=== PATIENT | male | born 1950 | race Two or more races ===

== ENCOUNTER 2018-05-20 13:52 | Outpatient (CLI) | payer OTHER ==
[~2018-05-20 13:52] MED LIST: ARICEPT5 MG; VYTORIN 10-20 M1 TAB; ZESTORETIC 10/11 TAB
== END 2018-05-20 14:02 | disposition home or self-care (01) ==
LOC: LAB 13:52
DX: R97.20 Elevated prostate specific antigen [PSA] (principal)

== ENCOUNTER 2018-06-06 07:08 | Outpatient (CLI) | payer OTHER | END 2018-06-06 07:23 | disposition home or self-care (01) | LOC: SONOGRAMA 07:08 | DX: R97.20 Elevated prostate specific antigen [PSA] (principal) ==

== ENCOUNTER → 2018-06-06 | Emergency (ER) | payer OTHER | END | disposition left against medical advice (07) | LOC: ER 22:57 | DX: Z53.20 Procedure and treatment not carried out because of patient's decision for unspecified reasons (principal) ==

== ENCOUNTER 2018-06-18 10:17 | Outpatient (CLI) | payer OTHER | END 2018-06-18 10:32 | disposition home or self-care (01) | LOC: TOM 10:17 | DX: N40.0 Benign prostatic hyperplasia without lower urinary tract symptoms (principal); R97.20 Elevated prostate specific antigen [PSA]; F52.21 Male erectile disorder; C61 Malignant neoplasm of prostate ==

== ENCOUNTER → 2018-07-14 | Outpatient (CLI) | payer OTHER | END | disposition home or self-care (01) | LOC: NUCLEAR 07:27 | DX: N40.0 Benign prostatic hyperplasia without lower urinary tract symptoms (principal); R97.20 Elevated prostate specific antigen [PSA]; F52.21 Male erectile disorder; C61 Malignant neoplasm of prostate | CPT/HCPCS: 78306; 78320; A9503 ==

== ENCOUNTER 2018-08-25 12:13 | Inpatient (IN) | payer OTHER ==
[~2018-08-25] VITALS: Ht 170.2 cm; Wt 86.2 kg
[2018-10-06] MEDS ORDERED: FUROSEMIDE20 MG PO (13:31)
[2018-10-06] MEDS ORDERED: [UNRECOGNIZED DRUG - CODE] PO (13:32)
[2018-10-06] MEDS ORDERED: CARV PO (13:32)
[2018-10-08] MEDS ORDERED: CARVEDILOL3.125 MG PO (07:58)
[2018-10-08] MEDS ORDERED: SPIRONOLACTONE25 MG PO (08:01)
[2018-10-08] MEDS ORDERED: EZETIMIBE-SIMV1 EAC3 PO (08:12)
== END 2018-10-10 11:51 | disposition home or self-care (01) | DRG 708 ==
LOC: EDSTATUS 10-06 10:00 → ADM 10-06 10:00 → O/R 10-06 10:00 → SURH 10-08 05:35 → O/R 10-08 05:35 → SURH 10-08 07:00 → SURG 10-08 13:28 → SURH 10-08 14:07
PROVIDERS: ADMIT Urology
PROC: 07TC0ZZ Resection of Pelvis Lymphatic, Open Approach (ICD-10-PCS; 2018-10-08)
PROC: 0VT30ZZ Resection of Bilateral Seminal Vesicles, Open Approach (ICD-10-PCS; 2018-10-08)
PROC: 0VT00ZZ Resection of Prostate, Open Approach (ICD-10-PCS; principal; 2018-10-08 07:00)
DX: C61 Malignant neoplasm of prostate (principal); F52.21 Male erectile disorder

== ENCOUNTER → 2018-12-22 10:01 | Outpatient (CLI) | payer OTHER ==
[~2018-12-22 10:01] MED LIST changes: +CARV PO; +CARVEDILOL3.125 MG PO; +EZETIMIBE-SIMV1 EAC3 PO; +FUROSEMIDE20 MG PO; +SPIRONOLACTONE25 MG PO; +[UNRECOGNIZED DRUG - CODE] PO
== END | disposition home or self-care (01) ==
LOC: LAB 10:01
DX: C61 Malignant neoplasm of prostate (principal); I10 Essential (primary) hypertension; D50.8 Other iron deficiency anemias; D51.8 Other vitamin B12 deficiency anemias; E11.9 Type 2 diabetes mellitus without complications; D55.0 Anemia due to glucose-6-phosphate dehydrogenase [G6PD] deficiency; D51.1 Vitamin B12 deficiency anemia due to selective vitamin B12 malabsorption with proteinuria; D51.0 Vitamin B12 deficiency anemia due to intrinsic factor deficiency; E03.8 Other specified hypothyroidism; E06.3 Autoimmune thyroiditis; D59.1 Other autoimmune hemolytic anemias; D59.8 Other acquired hemolytic anemias; Z80.42 Family history of malignant neoplasm of prostate

== ENCOUNTER → 2019-04-02 09:36 | Outpatient (CLI) | payer OTHER | END | disposition home or self-care (01) | LOC: LAB 09:36 | DX: C61 Malignant neoplasm of prostate (principal) ==

== ENCOUNTER 2019-10-27 10:33 | Outpatient (CLI) | payer OTHER | END 2019-10-27 10:41 | disposition home or self-care (01) | LOC: LAB 10:33 | PROVIDERS: ATTEND Internal Medicine Hematology & Oncology | DX: D50.8 Other iron deficiency anemias (principal); I10 Essential (primary) hypertension; N18.2 Chronic kidney disease, stage 2 (mild); D63.1 Anemia in chronic kidney disease; C61 Malignant neoplasm of prostate; E78.2 Mixed hyperlipidemia; R73.01 Impaired fasting glucose; R97.8 Other abnormal tumor markers ==

== ENCOUNTER → 2019-11-27 10:20 | Outpatient (CLI) | payer OTHER | END | disposition home or self-care (01) | LOC: LAB 10:20 | PROVIDERS: ATTEND Internal Medicine Hematology & Oncology | DX: N39.0 Urinary tract infection, site not specified (principal); R80.8 Other proteinuria; R94.4 Abnormal results of kidney function studies; Z80.42 Family history of malignant neoplasm of prostate; C61 Malignant neoplasm of prostate; E78.2 Mixed hyperlipidemia; R73.01 Impaired fasting glucose; D63.1 Anemia in chronic kidney disease; N18.2 Chronic kidney disease, stage 2 (mild) ==

== ENCOUNTER → 2020-03-01 08:03 | Outpatient (CLI) | payer OTHER | END | disposition home or self-care (01) | LOC: LAB 08:03 | PROVIDERS: ATTEND Internal Medicine Hematology & Oncology | DX: D50.8 Other iron deficiency anemias (principal); I10 Essential (primary) hypertension; D51.8 Other vitamin B12 deficiency anemias; D63.1 Anemia in chronic kidney disease; Z80.42 Family history of malignant neoplasm of prostate; C61 Malignant neoplasm of prostate; E78.2 Mixed hyperlipidemia; R73.01 Impaired fasting glucose; R80.8 Other proteinuria ==

== ENCOUNTER 2020-03-01 09:08 | Outpatient (CLI) | payer OTHER | END 2020-03-01 09:39 | disposition home or self-care (01) | LOC: SONOGRAMA 09:08 → MAMO-SONO 09:15 → SONOGRAMA 09:39 | DX: Q61.02 Congenital multiple renal cysts (principal) ==

== ENCOUNTER 2020-05-10 08:44 | Outpatient (CLI) | payer OTHER | END 2020-05-10 08:57 | disposition home or self-care (01) | LOC: LAB 08:44 | PROVIDERS: ATTEND Internal Medicine Hematology & Oncology | DX: N39.0 Urinary tract infection, site not specified (principal); R80.8 Other proteinuria; R94.4 Abnormal results of kidney function studies; Z80.42 Family history of malignant neoplasm of prostate; C61 Malignant neoplasm of prostate; I10 Essential (primary) hypertension; E78.2 Mixed hyperlipidemia; R73.01 Impaired fasting glucose; D63.1 Anemia in chronic kidney disease ==

== ENCOUNTER 2020-08-19 15:24 | Outpatient (CLI) | payer OTHER | END 2020-08-19 15:27 | disposition home or self-care (01) | LOC: LAB 15:24 | PROVIDERS: ATTEND Urology | DX: C61 Malignant neoplasm of prostate (principal) ==

== ENCOUNTER 2020-10-20 08:11 | Outpatient (CLI) | payer OTHER | END 2020-10-20 08:12 | disposition home or self-care (01) | LOC: LAB 08:11 | PROVIDERS: ATTEND Internal Medicine Hematology & Oncology | DX: D50.8 Other iron deficiency anemias (principal); R79.89 Other specified abnormal findings of blood chemistry; I10 Essential (primary) hypertension; R74.02 Elevation of levels of lactic acid dehydrogenase [LDH]; K76.89 Other specified diseases of liver; D63.1 Anemia in chronic kidney disease; D59.19 Other autoimmune hemolytic anemia; R97.0 Elevated carcinoembryonic antigen [CEA]; R97.8 Other abnormal tumor markers; Z80.42 Family history of malignant neoplasm of prostate; C61 Malignant neoplasm of prostate; E78.2 Mixed hyperlipidemia; R73.02 Impaired glucose tolerance (oral) ==

== ENCOUNTER 2020-11-23 08:17 | Outpatient (CLI) | payer OTHER | END 2020-11-23 15:00 | disposition home or self-care (01) | LOC: LAB 08:17 | PROVIDERS: ATTEND Urology | DX: C61 Malignant neoplasm of prostate (principal) ==

== ENCOUNTER 2021-07-17 08:31 | Outpatient (CLI) | payer OTHER | END 2021-07-17 08:32 | disposition home or self-care (01) | LOC: LAB 08:31 | PROVIDERS: ATTEND Internal Medicine Hematology & Oncology | DX: D50.8 Other iron deficiency anemias (principal); R79.9 Abnormal finding of blood chemistry, unspecified; I10 Essential (primary) hypertension; R74.02 Elevation of levels of lactic acid dehydrogenase [LDH]; K76.89 Other specified diseases of liver; D63.1 Anemia in chronic kidney disease; R97.0 Elevated carcinoembryonic antigen [CEA]; R97.8 Other abnormal tumor markers; R97.1 Elevated cancer antigen 125 [CA 125]; R97.20 Elevated prostate specific antigen [PSA]; R73.01 Impaired fasting glucose ==

== ENCOUNTER 2021-11-21 08:13 | Outpatient (CLI) | payer OTHER | END 2021-11-21 08:14 | disposition home or self-care (01) | LOC: LAB 08:13 | PROVIDERS: ATTEND Internal Medicine Hematology & Oncology | DX: D50.8 Other iron deficiency anemias (principal); R79.9 Abnormal finding of blood chemistry, unspecified; I10 Essential (primary) hypertension; R74.02 Elevation of levels of lactic acid dehydrogenase [LDH]; K76.89 Other specified diseases of liver; D63.1 Anemia in chronic kidney disease; R97.0 Elevated carcinoembryonic antigen [CEA]; R97.8 Other abnormal tumor markers; R97.20 Elevated prostate specific antigen [PSA]; C61 Malignant neoplasm of prostate; N18.2 Chronic kidney disease, stage 2 (mild); N18.30 Chronic kidney disease, stage 3 unspecified; R73.01 Impaired fasting glucose; E78.2 Mixed hyperlipidemia ==

== ENCOUNTER → 2022-11-23 08:03 | Outpatient (CLI) | payer OTHER | END | disposition home or self-care (01) | LOC: LAB 08:03 | PROVIDERS: ATTEND Internal Medicine Cardiovascular Disease | DX: E78.2 Mixed hyperlipidemia (principal); I10 Essential (primary) hypertension; E11.9 Type 2 diabetes mellitus without complications; D50.8 Other iron deficiency anemias; R79.9 Abnormal finding of blood chemistry, unspecified; R74.02 Elevation of levels of lactic acid dehydrogenase [LDH]; K76.89 Other specified diseases of liver; R97.0 Elevated carcinoembryonic antigen [CEA]; R97.8 Other abnormal tumor markers; R97.20 Elevated prostate specific antigen [PSA]; Z80.42 Family history of malignant neoplasm of prostate; C61 Malignant neoplasm of prostate; D63.1 Anemia in chronic kidney disease; N18.2 Chronic kidney disease, stage 2 (mild); N18.30 Chronic kidney disease, stage 3 unspecified ==

== ENCOUNTER → 2024-10-14 10:09 | Outpatient (CLI) | payer OTHER | END | disposition home or self-care (01) | LOC: NUCLEAR 10:00 | PROVIDERS: ATTEND Internal Medicine Cardiovascular Disease | DX: I10 Essential (primary) hypertension (principal); R07.9 Chest pain, unspecified ==